=== PATIENT | male | born 1955 | race Caucasian/White ===

== ENCOUNTER 2025-04-28 15:18 | Outpatient (CLI) | payer MEDICARE, BC | END 2025-04-28 15:19 | disposition home or self-care (01) | LOC: CSHCP 15:18 | PROVIDERS: ATTEND Internal Medicine | DX: J44.9 Chronic obstructive pulmonary disease, unspecified (principal); J98.4 Other disorders of lung | CPT/HCPCS: 94060; 94664; 94726; 94729; 94760 ==